=== PATIENT | male | born 1995 | race Hispanic/Latino ===

== ENCOUNTER 2024-11-14 23:23 | Emergency (ER) | payer OTHER ==
[~2024-11-14] VITALS: Ht 152.4 cm; Wt 68.5 kg
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
--- NOTE | 2024-11-15 01:13 | HMCIMG ---
EXAM: CR Left Elbow, 3 views. CLINICAL HISTORY: Pain. COMPARISON: None provided. FINDINGS: No acute fracture or aggressive appearing osseous lesion. Joint spaces are within normal limits. No radiographic evidence of joint effusion. The soft tissues are unremarkable. IMPRESSION: No acute bony abnormality is evident. /[place]
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
[2024-11-15] MEDS: OCTYL 2-CYANOACRYLATE 1 EACH TP ONE (01:28)
[2024-11-15 01:55] VITALS: BP 109/69; PULSE 84; RESP 21; TEMP 98.2; O2SAT 97
== END 2024-11-15 02:01 | disposition home or self-care (01) ==
LOC: EDH 23:23 → EEVIPCON 23:23 → EDH 11-15 02:01
DX: S01.81XA Laceration without foreign body of other part of head, initial encounter (principal); Y04.0XXA Assault by unarmed brawl or fight, initial encounter; Y93.89 Activity, other specified; Y92.149 Unspecified place in prison as the place of occurrence of the external cause; Y99.8 Other external cause status
CPT/HCPCS: 12011; 70486; 73080; 99284